=== PATIENT | female | born 1995 | race Caucasian/White ===

== ENCOUNTER 2019-02-20 05:50 | Day surgery (SDC) | payer OTHER ==
[~2019-02-20 05:50] MED LIST: AVIANE-28 TABL1 EACH PO
[2019-02-20] MEDS ORDERED: BACTRIM DS TAB1 EACH PO (09:22)
[2019-02-20] MEDS ORDERED: ULTRACET PO (09:22)
== END 2019-02-20 14:52 | disposition home or self-care (01) ==
LOC: CIR.AMB 05:50
DX: L05.01 Pilonidal cyst with abscess (principal)

== ENCOUNTER 2024-06-08 11:10 | Outpatient (CLI) | payer OTHER ==
[~2024-06-08 11:10] MED LIST changes: +BACTRIM DS TAB1 EACH PO; +ULTRACET PO
== END 2024-06-08 11:15 | disposition home or self-care (01) ==
LOC: PRENATAL 11:10
PROVIDERS: ATTEND Obstetrics & Gynecology Maternal & Fetal Medicine
DX: O36.80X0 Pregnancy with inconclusive fetal viability, not applicable or unspecified (principal); Z36.82 Encounter for antenatal screening for nuchal translucency; Z36.9 Encounter for antenatal screening, unspecified; Z14.8 Genetic carrier of other disease; Z3A.11 11 weeks gestation of pregnancy

== ENCOUNTER 2024-07-31 08:57 | Outpatient (CLI) | payer OTHER | END 2024-07-31 08:58 | disposition home or self-care (01) | LOC: PRENATAL 08:57 | PROVIDERS: ATTEND Obstetrics & Gynecology Maternal & Fetal Medicine | DX: O44.00 Complete placenta previa NOS or without hemorrhage, unspecified trimester (principal); Z3A.19 19 weeks gestation of pregnancy ==